=== PATIENT | male | born 1975 | race Caucasian/White ===

== ENCOUNTER 2022-07-06 23:09 | Observation (INO) | payer BC, SELFPAY ==
--- NOTE | ~2022-07-06 | XR_ITS ---
EXAMINATION: XR chest 1V portable INDICATION: Fever status post stem cell transplantation TECHNIQUE: Portable AP chest at 0006 hours COMPARISON: None available FINDINGS: A right internal jugular catheter ends with its tip in the distal superior vena cava. The l ungs are free of acute opacities. No pleural effusion or pneumothorax. The cardiomediastinal silhouet te is normal. IMPRESSION: 1. No acute cardiopulmonary abnormality. Reviewed, dictated and finalized at location F.
[2022-07-06 23:11] VITALS: BP 113/69; PULSE 123; RESP 18; TEMP 36.9; O2SAT 98
--- NOTE | 2022-07-06 23:37 | ED.GENADULT ---
HPI - General Adult General Chief complaint: Fever <Jonathan Kim MD - Last Filed: 07/08/22 04:31> Stated complaint: fever post stem cell transplant 06/13/22 <Jonathan Kim MD - Last Filed: 07/08/22 04:31> Time Seen by Provider: 07/06/22 23:29 <Jonathan Kim MD - Last Filed: 07/08/22 04:31> History of Present Illness HPI narrative: Patient 47-year-old gentleman who presents the emergency department with chief complaint of fever. Patient reports that he was just discharged from [facility] after he had had a stem cell or transplant earlier this month. Patient states had a temperature of right around 100 they talk to the Nereyda fellow who recommended that he come to the nearest emergency department for evaluation patient reports that he feels a little better since he is arrived to the emergency department and currently has a temperature that has come down from where it was initially. The patient reports has not taken any Tylenol does report that he has a indwelling vascular access in his right tunneled subclavian area. Patient reports no drainage from the site the patient denies cough denies runny nose sore throat denies dysuria denies abdominal pain or diarrhea. <Jonathan Kim MD - Last Filed: 07/08/22 04:31> Related Data Home medications: Home Medications Medication Instructions Recorded Confirmed letermovir 480 mg tablet (Prevymis) mg PO 07/07/22 07/07/22 lorazepam 0.5 mg tablet mg 07/07/22 07/07/22 mycophenolate mofetil 500 mg tablet PO 07/07/22 pantoprazole 40 mg tablet,delayed mg PO 07/07/22 release prochlorperazine maleate 10 mg mg 07/07/22 tablet tacrolimus 1 mg capsule, mg 07/07/22 immediate-release ursodiol 250 mg tablet mg 07/07/22 valacyclovir 500 mg tablet mg 07/07/22 <Jonathan Kim MD - Last Filed: 07/08/22 04:31> Allergies/adverse reactions: Allergies Allergy/AdvReac Type Severity Reaction Status Date / Time No Known Allergies Allergy Mild Verified 07/12/09 09:15 <Jonathan Kim MD - Last Filed: 07/08/22 04:31> Review of Systems Review of Systems: A 10 system review of systems was completed on the patient and is negative except for what is stated in the HPI. Nursing and ancillary documentation was reviewed. <Jonathan Kim MD - Last Filed: 07/08/22 04:31> PMFSH Comments Stem cell transplant at [facility] <Jonathan Kim MD - Last Filed: 07/08/22 04:31> Exam Narrative: GENERAL: Well-appearing, well-nourished, and in no acute distress. HEAD: Normocephalic, atraumatic. EYES: PERRLA and EOMI. ENT: Nares clear, no rhinorrhea or epistaxis. Mucous membranes moist. NECK: Supple. CHEST: Clear to auscultation. No respiratory distress. There is a tunneled triple-lumen access in the right chest wall there is no redness or drainage around the site HEART: Regular rate and rhythm. No murmur heard. Normal peripheral pulses. ABDOMEN: Soft, nontender, nondistended, normal active bowel sounds. EXTREMITIES: Normal range of motion. No edema. SKIN: Warm, dry, no rash. NEURO: No focal deficits. Alert and oriented x3. PSYCH: Normal mood and affect. <Jonathan Kim MD - Last Filed: 07/08/22 04:31> Course Course Emergency Course: Currently we are still waiting on a bed at [facility]. Due to the excessive weight the patient will be admitted for observation upstairs until a bed becomes available to allow the patient to be in a more comfortable room. <Jonathan Kim MD - Last Filed: 07/08/22 04:31> Reevaluation(s) Reevaluation #1: Patient been resting quietly in the emergency room without any issues or problems Waiting for bed available for transfer. <Mickey Friend MD - Last Filed: 07/07/22 18:31> Date: 07/07/22 <Mickey Friend MD - Last Filed: 07/07/22 18:31> Time: 08:25 <Mickey Friend MD - Last Filed: 07/07/22 18:31> Reevaluation #2:
[2022-07-06] MEDS: SODIUM CHLORIDE 0.9% IV 1,000 ML 999 ML IV CONT (23:54)
[2022-07-06 23:58] LABS: Basophils Percent Auto 0.7 % (0.2-1.2); Hematocrit 25.8 % (42.0-52.0); Hemoglobin 8.9 g/dL (14.0-18.0); Immature Platelet Fraction Pct 6.1 % (0.9-11.2); Lymphocytes Absolute Auto 0.23 K/mm3 (0.9-3.2); Lymphocytes Percent Auto 8.1 % (18.3-44.2); Mean Corpuscular HGB Conc 34.5 g/dl (32-36); Mean Corpuscular Hemoglobin 27.3 pg (26-34); Mean Corpuscular Volume 79.1 fl (80-100); Mean Platelet Volume 9.2 fl (7.4-10.4); Monocytes Absolute Auto 0.7 K/mm3 (0.1-0.6); Monocytes Percent Auto 23.6 % (2.6-8.5); Neutrophils Absolute Auto 1.7 K/mm3 (1.3-6.7); Neutrophils Percent Auto 60.6 % (45.5-73.1); Nucleated Red Blood Cells Perc 1.4 % (0.0-0.2); Red Blood Count 3.26 M/mm3 (4.6-6.20); Red Cell Distribution Width 15.2 % (11.5-14.5); White Blood Count 2.8 K/mm3 (4.5-10.0)
[2022-07-07] VITALS (9 sets, daily range): BP systolic 107–140; BP diastolic 61–86; PULSE 68–102; RESP 14–20; TEMP 37.1; O2SAT 95–100
[2022-07-07 00:04] LABS: Platelet Count Result 17 k/mm3 (150-375)
[2022-07-07 00:05] LABS: Add Urine Microscopic? YES; Appearance Urine Cloudy (Clear); Bilirubin Urine Negative (Negative); Blood Urine Negative (Negative); Color Urine Amber (Yellow); Glucose Urine UA Negative (Negative); Ketones Urine Negative (Negative); Leukocyte Esterase Ur Negative LEU/UL (Negative); Mucus Urine Few /lpf; Nitrate Urine Negative (Negative); Protein Urine Negative (Negative); Specific Grav Ur 1.029 (1.001-1.035); Squamous Epithelial Cell Urine Rare /hpf (Few)
[2022-07-07 00:07] LABS: Alanine Aminotransferase 321 U/L (6-50); Albumin Level 3.5 g/dL (3.5-5.1); Alkaline Phosphatase 102 U/L (38-126); Anion Gap 11 mmol/L (8-16); Aspartate Amino Transferase 123 U/L (17-59); Bilirubin,Total 1.4 mg/dL (0.2-1.3); Blood Urea Nitrogen 14 mg/dL (9-20); Calcium 8.2 mg/dL (8.4-10.2); Carbon Dioxide 24 mmol/L (22-30); Chloride 98 mmol/L (98-107); Estimated CRCL calculation 124 ml/min; Estimated Glomerular Filt Rate > 60; Glucose 221 mg/dL (65-110); Potassium 3.7 mmol/L (3.4-5.0); Sodium 133 mmol/L (137-145)
[2022-07-07 00:08] LABS: Lactic Acid Reflex 2.3 mmol/L (0.7-2.0)
[2022-07-07 00:11] LABS: CRP < 0.5 mg/dL (<1.0)
[2022-07-07 00:24] LABS: Erythrocyte Sedimentation Rate 17 mm/hr (0-20)
[2022-07-07 00:30] LABS: Influenza A QL RT-PCR Negative (Negative); Influenza B QL RT-PCR Negative (Negative); SARS-CoV-2 RNA PCR Negative
[2022-07-07 00:31] LABS: Procalcitonin 0.2 ng/mL
[2022-07-07 02:54] LABS: Reflex Lactic Acid Yes or No Add Lactic
--- NOTE | 2022-07-07 04:12 | PC.NURSE ---
[facility] transfer line called and accepted pt but no beds available at this time.
[2022-07-07 04:29] LABS: Lactic Acid 1.4 mmol/L (0.7-2.0)
--- NOTE | 2022-07-07 08:10 | PC.NURSE ---
CALLED [facility] AND SPOKE TO THE COORDINATOR FOR DR ROGERS. SHE OKED THE HOME MEDS TO BE GIVEN AND NO ADDITIONAL LABS NEEDED TO BE DRAWN. ALSO REPORTS THAT THE INFUSION THAT WAS ON PAPERWORK WAS NEEDED BASED ON LABS AND NOTHING NEEDED TO BE INFUSED AT THIS TIME.
--- NOTE | 2022-07-07 09:05 | PC.NURSE ---
SPOKE WITH LOGAN COORDINATOR AT [facility] [phone] WHO OK'ED DOSE CHANGE ON URSODIOL FROM 250MG TO 300MG WHILE HERE AT [facility]. PHARMACY WAS MADE AWARE.
[2022-07-07] MEDS: PANTOPRAZOLE 40 MG TABLET PO (09:20)
[2022-07-07] MEDS: mycophenolate mofetiL 250 MG CAPSULE 1000 MG PO ×3 (09:22→20:40)
[2022-07-07] MEDS: TACROLIMUS 0.5 MG CAPSULE 1 MG PO ×2 (09:23→20:40)
[2022-07-07] MEDS: valACYclovir HCL 500 MG TABLET PO (09:23)
[2022-07-07] MEDS: ursodioL 300 MG CAPSULE PO ×2 (09:23→20:40)
--- NOTE | 2022-07-07 09:31 | PHAR ---
The patient's home med of Prevymis 480mg has been verified.
[2022-07-07] MEDS: LOPERAMIDE HCL 2 MG CAPSULE PO ×2 (13:11→18:35)
--- NOTE | 2022-07-07 18:25 | PC.NURSE ---
Patient placed in hospital bed for comfort. Waiting for work from [place] for a bed for patient
--- NOTE | 2022-07-07 22:41 | PC.NURSE ---
Called [facility]/[place] Transfer Line and spoke with Madisyn for bed status...no beds available at this time, patient still on waitlist, will call when bed becomes available...(no ETA).
[2022-07-08 02:37] VITALS: BP 139/78; PULSE 105; RESP 14; O2SAT 97
--- NOTE | 2022-07-08 06:34 | PC.NURSE ---
Spoke with Shakira at [facility], and informed her this patient is being admitted here while he waits for a bed to become available. Gave her room number and phone number to call for condition updates.
[2022-07-08 07:52] VITALS: BP 131/72; PULSE 98; RESP 18; TEMP 36.6; O2SAT 97
--- NOTE | 2022-07-08 08:17 | ADMGEN ---
This patient, Cristofer Graham, was admitted to 3 [facility] Surg Room 319-01. Patient/family oriented to hospital policies and general routines including ID bracelet, bed and alarms, visiting hours, pain management, procedures, bathroom and other care routines, personal items, smoking policy, room service/diet, and visiting hours. Information on how to activate the Rapid Response Team has been discussed. Patient/Family are encouraged to report perceived risks to care and to ask questions if they do not understand what they are told or what they should do. Patient is in room comfortable, no complaint of pain, discomfort or SOB.
[2022-07-08] MEDS: PANTOPRAZOLE 40 MG TABLET PO (08:56)
[2022-07-08] MEDS: TACROLIMUS 0.5 MG CAPSULE 1 MG PO ×2 (08:56→20:47)
[2022-07-08] MEDS: ursodioL 300 MG CAPSULE PO ×2 (08:56→20:47)
[2022-07-08] MEDS: mycophenolate mofetiL 250 MG CAPSULE 1000 MG PO ×3 (08:56→20:47)
[2022-07-08] MEDS: valACYclovir HCL 500 MG TABLET PO (08:56)
[2022-07-08 09:33] LABS: Hematocrit 22.6 % (42.0-52.0); Hemoglobin 7.8 g/dL (14.0-18.0); Immature Platelet Fraction Pct 7.8 % (0.9-11.2); Mean Corpuscular HGB Conc 34.5 g/dl (32-36); Mean Corpuscular Hemoglobin 27.5 pg (26-34); Mean Corpuscular Volume 79.6 fl (80-100); Red Blood Count 2.84 M/mm3 (4.6-6.20); Red Cell Distribution Width 15.1 % (11.5-14.5); White Blood Count 2.3 K/mm3 (4.5-10.0)
[2022-07-08 10:08] LABS: Alanine Aminotransferase 423 U/L (6-50); Albumin Level 3.2 g/dL (3.5-5.1); Alkaline Phosphatase 88 U/L (38-126); Anion Gap 6 mmol/L (8-16); Aspartate Amino Transferase 168 U/L (17-59); Bilirubin,Total 1.2 mg/dL (0.2-1.3); Blood Urea Nitrogen 9 mg/dL (9-20); Carbon Dioxide 24 mmol/L (22-30); Chloride 101 mmol/L (98-107); Estimated CRCL calculation 143 ml/min; Estimated Glomerular Filt Rate > 60; Glucose 178 mg/dL (65-110); Magnesium 1.3 mg/dL (1.6-2.3); Potassium 3.8 mmol/L (3.4-5.0); Sodium 131 mmol/L (137-145)
[2022-07-08 10:42] LABS: Platelet Count Result 14 k/mm3 (150-375)
[2022-07-08 10:46] LABS: Anisocytosis 2+ (NORMAL); Band Neutrophils Percent 1 % (0-6); Lymphocytes Absolute Manual 0.11 K/mm3 (1.1-4.5); Monocytes Absolute Manual 0.09 K/mm3 (0.1-0.90); Monocytes Percent Manual 4 % (3-9); Neutrophils Absolute Manual 2.09 K/mm3 (1.3-6.7); Neutrophils Percent Manual 90 % (46-73); Nucleated Red Blood Cells 1 %; Ovalocytes 2+ (NORMAL); Platelet Estimate Decreased (Adequate); Tear Drop Cells 1+ (NORMAL); Total Cells Counted 100
[2022-07-08 10:54] LABS: Schistocytes None Seen (NORMAL)
--- NOTE | 2022-07-08 11:38 | PM.IMHP ---
H&P: HPI History of Present Illness Date/Time: 07/08/22 11:38 Chief Complaint: leukopenic fever Narrative: ED-HPI narrative: ? ? ? Patient 47-year-old gentleman who presents the emergency department with chief complaint of fever.? Patient reports that he was just discharged from [facility] after he had had a stem cell or transplant earlier this month.? Patient states had a temperature of right around 100 they talk to the Nereyda fellow who recommended that he come to the nearest emergency department for evaluation patient reports that he feels a little better since he is arrived to the emergency department and currently has a temperature that has come down from where it was initially.? The patient reports has not taken any Tylenol does report that he has a indwelling vascular access in his right tunneled subclavian area.? Patient reports no drainage from the site the patient denies cough denies runny nose sore throat denies dysuria denies abdominal pain or diarrhea. Patient with hematology malignancy had been seen at [facility], had stem cell transplant earlier this month, patient had developed fever, and generalized weakness, patient contacted his hamatolotist and was asked to go to nearest ER, upon arrival patient had pancytopenia with white counts of 28, Hgb of 8.9 and platelets of 17 and repeat platelets of 14 without any bleeding and bruising, will monitor and if the platelets drop below 10 will transfuse, also patient is started on Cefepime and vancomycin for leukopenic fever, patient patient is clinically stable, will continue to monitor and further recommendations. I Did call [facility] to speak with his attending but on weekends, attending do not work and I supposed to talk to Fellow but so far have not received the call, patient will monitor patient platelets if platelets drop below 10 or patient has bleeding, will give two units, type and screen is already done. I went back gave update to patient and his . patient is admitted as observation status Review of Systems Review of Systems: A 10 system review of systems was completed on the patient and is negative except for what is stated in the HPI. Nursing and ancillary documentation was reviewed. [facility] Social History Social History Smoking status: Never smoker Alcohol intake: former Substance use: never Substance use type: does not use Last use: karen Has the Lack of Transportation Kept You From Medical Appointments or From Getting Medications?: No Within the Past 12 Months, Were You Worried Whether Your Food Would Run Out Before You Got Money to Buy More?: Never True What is Your Housing Situation Today?: I Have Housing Are You Worried That in the Next 2 Months, You May Not Have Your Own Housing to Live In?: No Do You Have Trouble Paying Your Heating Or Electricity Bill?: No Do You Have Trouble Paying For Medicines?: No Are You Currently Unemployed and Looking for Work?: No Highest Level of Education Completed: Bachelor's Degree Do You Have Trouble With Childcare or the Care of a Family Member?: No Spiritual care concerns: No Meds Home Medications and Allergies Home Medications Medication Instructions Recorded Confirmed Type letermovir 480 mg tablet (Prevymis) mg PO 07/07/22 History lorazepam 0.5 mg tablet mg 07/07/22 History mycophenolate mofetil 500 mg tablet PO 3XD 07/07/22 History pantoprazole 40 mg tablet,delayed mg PO 07/07/22 History release prochlorperazine maleate 10 mg mg 07/07/22 History tablet tacrolimus 1 mg capsule, mg 07/07/22 History immediate-release ursodiol 250 mg tablet mg 07/07/22 History valacyclovir 500 mg tablet mg 07/07/22 History Allergies Allergy/AdvReac Type Severity Reaction Status Date / Time No Known Allergies Allergy Mild Verified 07/12/09 09:15 Vital Signs Vital Signs - 24 hr 07/07/22
[2022-07-08 14:00] VITALS: BP 119/73; PULSE 89; RESP 14; TEMP 36.8; O2SAT 100
[2022-07-08 14:05] LABS: Hematocrit 22.4 % (42.0-52.0); Hemoglobin 7.8 g/dL (14.0-18.0); Immature Granulocyte Percent A 9.9 % (0-0.5); Lymphocytes Absolute Auto 0.16 K/mm3 (0.9-3.2); Lymphocytes Percent Auto 7.9 % (18.3-44.2); Mean Corpuscular HGB Conc 34.8 g/dl (32-36); Mean Corpuscular Hemoglobin 27.6 pg (26-34); Mean Corpuscular Volume 79.2 fl (80-100); Monocytes Absolute Auto 0.5 K/mm3 (0.1-0.6); Monocytes Percent Auto 26.7 % (2.6-8.5); Neutrophils Absolute Auto 1.1 K/mm3 (1.3-6.7); Neutrophils Percent Auto 53.5 % (45.5-73.1); Nucleated Red Blood Cells Perc 1.5 % (0.0-0.2); Red Blood Count 2.83 M/mm3 (4.6-6.20); Red Cell Distribution Width 15.3 % (11.5-14.5)
[2022-07-08 14:28] LABS: Vancomycin Trough 6.9 ug/mL (10.0-20.0)
[2022-07-08 16:15] LABS: Platelet Count Result 15 k/mm3 (150-375)
[2022-07-08 16:16] LABS: Platelet Estimate Decreased (Adequate)
[2022-07-08 16:17] LABS: Anisocytosis 1+ (NORMAL); Ovalocytes 1+ (NORMAL); Schistocytes None Seen (NORMAL)
[2022-07-08 18:27] LABS: Basophils Percent Auto 0.5 % (0.2-1.2); Eosinophils Percent Auto 0.5 % (0-4.4); Hematocrit 22.2 % (42.0-52.0); Hemoglobin 7.6 g/dL (14.0-18.0); Immature Granulocyte Absolute 0.23 K/mm3 (0.00-0.031); Immature Granulocyte Percent A 11.6 % (0-0.5); Immature Platelet Fraction Pct 6.5 % (0.9-11.2); Lymphocytes Absolute Auto 0.15 K/mm3 (0.9-3.2); Lymphocytes Percent Auto 7.6 % (18.3-44.2); Mean Corpuscular HGB Conc 34.2 g/dl (32-36); Mean Corpuscular Hemoglobin 27.2 pg (26-34); Mean Corpuscular Volume 79.6 fl (80-100); Monocytes Absolute Auto 0.5 K/mm3 (0.1-0.6); Monocytes Percent Auto 25.8 % (2.6-8.5); Neutrophils Absolute Auto 1.1 K/mm3 (1.3-6.7); Red Blood Count 2.79 M/mm3 (4.6-6.20); Red Cell Distribution Width 15.2 % (11.5-14.5)
[2022-07-08 18:39] LABS: Platelet Count Result 15 k/mm3 (150-375)
[2022-07-08 18:40] LABS: Anisocytosis 1+ (NORMAL); Platelet Estimate Decreased (Adequate)
[2022-07-08 18:41] LABS: Ovalocytes 1+ (NORMAL); Schistocytes None Seen (NORMAL)
[2022-07-08 21:18] VITALS: BP 122/65; PULSE 91; RESP 20; TEMP 37.1; O2SAT 99
--- NOTE | 2022-07-09 07:24 | PM.TDS ---
Transfer Discharge Sum: Prov Provider Date of admission: 07/08/22 04:28 Primary care physician: Diego Yung, DO Admitting clinician: Alma Delia Meehan MD DS: Admitting Diagnosis Discharge Date 07/09/22 Admitting Diagnosis fever DS: Discharge Diagnosis Discharge Diagnosis (1) Acute febrile illness: Code(s): R50.9 - Fever, unspecified Status: Acute Assessment and Plan: ED-HPI narrative: ? ? ? Patient 47-year-old gentleman who presents the emergency department with chief complaint of fever.? Patient reports that he was just discharged from [facility] after he had had a stem cell or transplant earlier this month.? Patient states had a temperature of right around 100 they talk to the Nereyda fellow who recommended that he come to the nearest emergency department for evaluation patient reports that he feels a little better since he is arrived to the emergency department and currently has a temperature that has come down from where it was initially.? The patient reports has not taken any Tylenol does report that he has a indwelling vascular access in his right tunneled subclavian area.? Patient reports no drainage from the site the patient denies cough denies runny nose sore throat denies dysuria denies abdominal pain or diarrhea. Patient with hematology malignancy had been seen at [facility] [place] [facility], had stem cell transplant earlier this month, patient had developed fever, and generalized weakness, patient contacted his hamatolotist and was asked to go to nearest ER, upon arrival patient had pancytopenia with white counts of 28, Hgb of 8.9 and platelets of 17 and repeat platelets of 14 without any bleeding and bruising, will monitor and if the platelets drop below 10 will transfuse, also patient is started on Cefepime and vancomycin for leukopenic fever, patient patient is clinically stable, will continue to monitor and further recommendations. I Did call [facility] cancer to speak with his attending but on weekends, attending do not work and I supposed to talk to Fellow but so far have not received the call, patient will monitor patient platelets if platelets drop below 10 or patient has bleeding, will give two units, type and screen is already done. I went back gave update to patient and his . (2) History of stem cell transplant: Code(s): Z94.84 - Stem cells transplant status Status: Acute Assessment and Plan: plan is above Transfer Discharge Sum: Med Medications Active and Home Medications: Home Medications letermovir 480 mg tablet (Prevymis) 480 mg PO DAILY 07/07/22 [History Confirmed 07/08/22] lorazepam 0.5 mg tablet 0.5 mg PO TID 07/07/22 [History Confirmed 07/08/22] mycophenolate mofetil 500 mg tablet 500 mg PO TID 07/07/22 [History Confirmed 07/08/22] pantoprazole 40 mg tablet,delayed release 40 mg PO DAILY 07/07/22 [History Confirmed 07/08/22] prochlorperazine maleate 10 mg tablet 10 mg PO DAILY 07/07/22 [History Confirmed 07/08/22] tacrolimus 1 mg capsule, immediate-release 1 mg PO DAILY 07/07/22 [History Confirmed 07/08/22] ursodiol 250 mg tablet 250 mg PO DAILY 07/07/22 [History Confirmed 07/08/22] valacyclovir 500 mg tablet 500 mg PO DAILY 07/07/22 [History Confirmed 07/08/22] Transfer Discharge Sum: Hosp Hospital Course Hospital course: Cristofer Graham is a 47 year old male ED-HPI narrative: ? ? ? Patient 47-year-old gentleman who presents the emergency department with chief complaint of fever.? Patient reports that he was just discharged from [facility] after he had had a stem cell or transplant earlier this month.? Patient states had a temperature of right around 100 they talk to the Nereyda fellow who recommended that he come to the nearest emergency department for evaluation patient reports that he feels a little better since he is arrived to the emergency department and currently has a temperature that has come down from where it was initially.? The patien
== END 2022-07-09 01:05 | disposition other institution (70) ==
LOC: ANHED 07-08 06:46 → ANH3MEDSUR 07-08 19:42
PROVIDERS: Admitting Provider Family Medicine; Emergency Provider Emergency Medicine; PCP Student in an Organized Health Care Education/Training Program; Visit Provider Family Medicine
DX: R50.9 Fever, unspecified (principal); R53.1 Weakness; D61.818 Other pancytopenia; Z94.84 Stem cells transplant status; Z95.9 Presence of cardiac and vascular implant and graft, unspecified; E66.9 Obesity, unspecified; Z20.822 Contact with and (suspected) exposure to COVID-19; Z68.25 Body mass index [BMI] 25.0-25.9, adult; Z79.899 Other long term (current) drug therapy
CPT/HCPCS: 36415; 71045; 80053; 80202; 81001; 83605; 83735; 84145; 85025; 85055; 85652; 86140; 86850; 86900; 86901; 87040; 87502; 96361; 96365; 96366; 96367; 96376; 99285; A9270; G0378; J0692; J3370; J7030; J7517; U0003; U0005